=== PATIENT | male | born 1965 | race Caucasian/White ===

== ENCOUNTER 2023-12-01 00:22 | Day surgery (SDC) | payer OTHER, SELFPAY ==
[2023-11-14 11:29] VITALS: BMI 28.8
[2023-12-01 07:06] VITALS: BP 137/100; PULSE 73; RESP 17; TEMP 36; O2SAT 99; BMI 28.8
[2023-12-01] MEDS: LACTATED RINGERS 1,000 ML 150 ML IV CONT (07:15)
--- NOTE | 2023-12-01 07:46 | WPDANESEPPF ---
Anes - Initial Pre Proc Eval Procedure: Operation Date: 12/01/23 08:30 Proposed Procedures p Screening Colonoscopy - Bertin Diehl MD Date/Time: 12/01/23 07:46 Surgeon: Bertin Diehl MD Pre Op Diagnosis: neoplasm screening Patient Data Age: 57 Gender: M Height: 1.75 m Weight: 88.4 kg Last Vital Signs Temp 96.8 F L 12/01/23 07:06 Pulse 73 12/01/23 07:06 Resp 17 12/01/23 07:06 BP 137/100 H 12/01/23 07:06 Pulse Ox 99 12/01/23 07:06 O2 Del Method Room Air 12/01/23 07:06 Allergies Allergy/AdvReac Type Severity Reaction Status Date / Time No Known Allergies Allergy Mild Verified 12/01/23 07:04 Home Medications Medication Instructions Recorded Confirmed Type fluticasone propionate 50 1 spray intranasal DAILY PRN 12/05/22 12/01/23 History mcg/actuation nasal Allergy Symptoms spray,suspension (Flonase Allergy Relief) lisinopril 40 mg tablet 40 mg PO DAILY #90 tabs 12/05/22 12/01/23 Rx Patient hx anesthesia problems: none Family hx anesthesia problems: none Results Review: All pre-operative results and documents have been reviewed as part of the pre-operative evaluation. [facility] Past Medical History Medical History Hypertension Seasonal allergies Vitamin D deficiency Surgical History Surgical History S/P excision of lipoma (~06/2006) back Family History Family History Father Asthma Family history of cardiovascular disease Family history of lung cancer Family history of coronary artery disease Grandparent Family history of cardiovascular disease Mother Family history of chronic obstructive pulmonary disease Family history of emphysema Social History Social History Smoking status: Never smoker Second hand tobacco smoke exposure: No Alcohol intake: current Drinks per week: 12 Alcohol use details: 12 pack per week. Substance use: never Substance use type: does not use Lack of Transportation: No Lack of Food: Never True Current Housing: I Have Housing Concerned About Future Housing: No Difficulty Paying Gas/Electric Bills: No Difficulty Paying for Meds: No Currently Unemployed: No Education: Associate Degree Difficulty w/ Childcare or Family Care: No Living arrangements: other Additional living arrangements comments: with sp Occupation/Education: occupation Gender identity (if verbalized by the patient): Male Anes - Eval Final PreProcedure Day of Procedure 12/01/23 07:46 Patient weight: normal Heart: regular rate and rhythm Lungs: clear to auscultation Airway: Mallampati scale class II Neurological: alert and oriented Last oral intake: >/= 8 hours ASA classification: II Emergent: no Anesthetic plan: proceed Anesthesia type and monitoring: general GIVS and standard monitoring Results Review: All pre-operative results and documents have been reviewed as part of the pre-operative evaluation. Very active w cardio workouts 5 x weekly, no cp or sob. Informed Consent: The patient's anesthetic plan and its attendant risks and benefits were discussed with the patient/family/POA. Questions were solicited and answers provided to the satisfaction of the patient/family/POA.
--- NOTE | 2023-12-01 08:02 | PM.HPGS ---
History of Present Illness History of Present Illness Consent: Risks, benefits, and alternatives have been discussed and questions answered. Patient agrees to proceed with procedure. Chief complaint: neoplasm screening Narrative: Fermín Hagen is a 57 year old male here for screening colonoscopy, last one 10 years ago Review of Systems Review of Systems: All systems reviewed & are unremarkable except as noted in HPI and below PMFSH Past Medical History Medical History (Updated 12/01/23 @ 08:03 by Bertin Diehl MD) Colon cancer screening Hypertension Seasonal allergies Vitamin D deficiency Surgical History Surgical History S/P excision of lipoma (~06/2006) back Family History Family History Father Asthma Family history of cardiovascular disease Family history of lung cancer Family history of coronary artery disease Grandparent Family history of cardiovascular disease Mother Family history of chronic obstructive pulmonary disease Family history of emphysema Social History Social History Smoking status: Never smoker Second hand tobacco smoke exposure: No Alcohol intake: current Drinks per week: 12 Alcohol use details: 12 pack per week. Substance use: never Substance use type: does not use Lack of Transportation: No Lack of Food: Never True Current Housing: I Have Housing Concerned About Future Housing: No Difficulty Paying Gas/Electric Bills: No Difficulty Paying for Meds: No Currently Unemployed: No Education: Associate Degree Difficulty w/ Childcare or Family Care: No Living arrangements: other Additional living arrangements comments: with sp Occupation/Education: occupation Gender identity (if verbalized by the patient): Male Meds Home Medications and Allergies Home Medications Medication Instructions Recorded Confirmed Type fluticasone propionate 50 1 spray intranasal DAILY PRN 12/05/22 12/01/23 History mcg/actuation nasal Allergy Symptoms spray,suspension (Flonase Allergy Relief) lisinopril 40 mg tablet 40 mg PO DAILY #90 tabs 12/05/22 12/01/23 Rx Allergies Allergy/AdvReac Type Severity Reaction Status Date / Time No Known Allergies Allergy Mild Verified 12/01/23 07:04 Vital Signs Vital Signs - 24 hr 12/01/23 07:06 Temperature 96.8 F L Pulse Rate 73 Respiratory Rate 17 Blood Pressure 137/100 H Pulse Oximetry 99 Oxygen Delivery Room Air Exam Const: General: comfortable and no acute distress HENMT: Face/Nose/Sinus: Normal nares present Eyes: General: appearance normal, both eyes and all related structures Neck: Neck: no JVD Resp: Auscultation: clear to auscultation bilaterally Cardio: Rate: regular rate Rhythm: regular rhythm GI: Inspection: non-distended GI Palp: Yes Soft to palpation Skin: General skin exam: normal color Neuro: General: gait normal Speech: normal speech Extrem: General: normal to inspection Psych: Mental Status: mental status grossly normal Assessment and Plan Assessment and plan (1) Colon cancer screening: Code(s): Z12.11 - Encounter for screening for malignant neoplasm of colon Status: Acute Assessment and Plan: colonoscopy
[2023-12-01 08:18] VITALS: BP 118/71; PULSE 70; RESP 20; O2SAT 95
[2023-12-01 08:28] VITALS: BP 135/80; PULSE 64; RESP 18; O2SAT 98
[2023-12-01 08:38] VITALS: BP 141/82; PULSE 75; RESP 18; O2SAT 99
== END 2023-12-01 08:48 | disposition home or self-care (01) ==
PROVIDERS: PCP Family Medicine; Visit Provider Internal Medicine Gastroenterology
PROC: 0DJD8ZZ Inspection of Lower Intestinal Tract, Via Natural or Artificial Opening Endoscopic (ICD-10-PCS; CPT 45378; principal; 2023-12-01 08:30)
DX: Z12.11 Encounter for screening for malignant neoplasm of colon (principal); K63.3 Ulcer of intestine; K64.8 Other hemorrhoids; I10 Essential (primary) hypertension
CPT/HCPCS: 45380; 88305; J2704; J7120